=== PATIENT | male | born 1975 | race African-American/Black ===

== ENCOUNTER 2020-11-07 22:38 | Emergency (ER) | payer OTHER ==
[~2020-11-07] VITALS: Ht 195.6 cm; Wt 154.2 kg
[2020-11-07] MEDS ORDERED: LISINOPRIL-HCT1 EAC1 PO (23:27)
[2020-11-08] MEDS ORDERED: DOXYCYCLINE HY100 MG PO (01:22)
[2020-11-08] MEDS ORDERED: HYDROCODON-ACE1 EA10 PO (01:22)
== END 2020-11-08 02:46 | disposition home or self-care (01) ==
LOC: ED 22:38
DX: L03.115 Cellulitis of right lower limb (principal); I10 Essential (primary) hypertension; E11.9 Type 2 diabetes mellitus without complications; F17.200 Nicotine dependence, unspecified, uncomplicated; Z79.899 Other long term (current) drug therapy
CPT/HCPCS: 10060; 71045; 80053; 83605; 85025; 99283-25; J3370; J7060